=== PATIENT | female | born 1980 | race Caucasian/White ===

== ENCOUNTER 2019-04-05 18:10 | Observation (INO) | payer OTHER ==
[2019-04-05] MEDS ORDERED: ONDANSETRON 4 MG/2 ML VIAL IVP STA (18:22)
[2019-04-05] MEDS ORDERED: HYDROmorphone 1 MG/ML CARPUJECT IVP STA ×3 (18:22→20:53)
--- NOTE | 2019-04-05 18:24 | ED Physician Documentation ---
PD HPI ABD PAIN - Stated complaint Stated Complaint: CRAMPING - Chief complaint Chief Complaint: Abd Pain - History obtained from History obtained from: Patient - History of Present Illness Timing - onset: Other (G3, P1 at 6 weeks gestation with an LMP of February 17 was having some bleeding on and off for the last few days. [place] results. Today the pain is much more severe with light bleeding and now is on the left.) Review of Systems Ten Systems: 10 systems reviewed and negative Constitutional: reports: Reviewed and negative Cardiac: reports: Reviewed and negative Respiratory: reports: Reviewed and negative PD PAST MEDICAL HISTORY - Allergies Allergies/Adverse Reactions: Allergies Allergy/AdvReac Type Severity Reaction Status Date / Time aspirin Allergy Unknown Verified 04/05/19 18:12 ibuprofen Allergy Unknown Verified 04/05/19 18:12 PD ED PE NORMAL - Vitals Vital signs reviewed: Yes - General General: Alert and oriented X 3, Other (She is crying and appears uncomfortable) - HEENT HEENT: PERRL, EOMI - Neck Neck: Supple, no meningeal sign, No bony TTP - Cardiac Cardiac: RRR, No murmur - Respiratory Respiratory: No respiratory distress, Clear bilaterally - Abdomen Abdomen: Normal bowel sounds, Soft, Non tender - Female Female : Other (No obvious intrauterine on bedside ultrasound) - Back Back: No CVA TTP, No spinal TTP - Derm Derm: Normal color, Warm and dry, No rash - Neuro Neuro: Alert and oriented X 3, Normal speech Results - Vitals Vitals: Vital Signs - 24 hr 04/05/19 04/05/19 18:13 21:00 Temperature 36.4 C L Heart Rate 68 78 Respiratory 20 16 Rate Blood Pressure 142/102 H 116/80 O2 Saturation 100 100 Oxygen O2 Source Room air - Labs Labs: Laboratory Tests 04/05/19 04/05/19 04/05/19 18:30 18:30 18:30 WBC 8.3 RBC 4.43 Hgb 13.4 Hct 38.2 MCV 86.2 MCH 30.2 MCHC 35.1 RDW 12.2 Plt Count 246 MPV 9.0 Neut # (Auto) 3.0 Lymph # (Auto) 4.5 H [place] # (Auto) 0.6 Eos # (Auto) 0.1 Baso # (Auto) 0.0 Absolute Nucleated RBC 0.00 Nucleated RBC % 0.0 Sodium 136 Potassium 3.1 L Chloride 105 Carbon Dioxide 20 L Anion Gap 11.0 BUN 15 Creatinine 0.8 Estimated GFR (MDRD) 81 L Glucose 125 H Calcium 9.2 HCG, Quant Urine Color Urine Clarity Urine pH Ur Specific [place] Urine Protein Urine Glucose (UA) Urine Ketones Urine Occult Blood Urine Nitrite Urine Bilirubin Urine Urobilinogen Ur Leukocyte Esterase Urine RBC Urine WBC Ur Squamous Epith Cells Urine Bacteria Ur Microscopic Review Urine Culture Comments Blood Type B POSITIVE Blood Type Recheck Antibody Screen Crossmatch IS Only 04/05/19 04/05/19 04/05/19 18:30 18:30 19:15 WBC RBC Hgb Hct MCV MCH MCHC RDW Plt Count MPV Neut # (Auto) Lymph # (Auto) [place] # (Auto) Eos # (Auto) Baso # (Auto) Absolute Nucleated RBC Nucleated RBC % Sodium Potassium Chloride Carbon Dioxide Anion Gap BUN Creatinine Estimated GFR (MDRD) Glucose Calcium HCG, Quant 3407.00 Urine Color RED/BLOODY Urine Clarity CLOUDY Urine pH 8.5 H Ur Specific [place] 1.020 Urine Protein TRACE Urine Glucose (UA) NEGATIVE Urine Ketones NEGATIVE Urine Occult Blood LARGE H Urine Nitrite NEGATIVE Urine Bilirubin NEGATIVE Urine Urobilinogen 0.2 (NORMAL) Ur Leukocyte Esterase NEGATIVE Urine RBC TNTC H Urine WBC 0-3 Ur Squamous Epith Cells NONE SEEN Urine Bacteria Rare Ur Microscopic Review INDICATED Urine Culture Comments NOT INDICATED Blood Type Cancelled Blood Type Recheck Antibody Screen NEGATIVE Crossmatch IS Only See Detail 04/05/19 22:22 WBC RBC Hgb Hct MCV MCH MCHC RDW Plt Count MPV Neut # (Auto) Lymph # (Auto) [place] # (Auto) Eos # (Auto) Baso # (Auto) Absolute Nucleated RBC Nucleated RBC % Sodium Potassium Chloride Carbon Dioxide Anion Gap BUN Creatinine Estimated GFR (MDRD) Glucose Calcium HCG, Quant Urine Color Urine Clarity Urine pH Ur Specific [place] Urine Protein Urine Glucose (UA) Urine Ketones Urine Occult Blood Urine Nitrite Urine Bilirubin Urine Urobilinogen Ur Leukocyte Esterase Urine RBC Urine WBC Ur Squamous Epith Cells Urine Bacteria Ur Microscopic Review Urine Culture Comments Blood Type Blood Type Recheck B POSITIVE Antibody Screen Crossmatch IS Only - Rads (name of study) OB Sono Radiology: Discussed with rads (1. Left adnexal mass concerning for an ectopic , seen adjacent to the left ovary, measures 1.9 x 1.4 x 1.1 cm, contains a cystic area with echogenic rim, and the cystic area mean sac diameter measuring 0.48 cm corresponding to 5 weeks 2 days gestational age if this is a gestational sac. No embryo or yolk sac is seen. Small amount of low level echogenic complex free fluid is seen adjacent to the left adnexal mass, concerning for a small amount of hemoperitoneum. 2. Pseudogestational sac versus possible intrauterine . Cystic area seen at the fundal endometrium with a mean sac diameter of 0.41 cm corresponding to 5 weeks 1 day gestational age if this is a gestational sac. No embryo or yolk sac is seen. 3. Small probable hemoperitoneum seen in the posterior cul-de-sac.) PD MEDICAL DECISION MAKING - ED course ED course: 38-year-old woman is had some bleeding in this presents now with severe left pelvic pain requiring narcotic pain medication. Work-up is concerning for a left ectopic and case was discussed by phone with Dr. Cartwright at 9:25pm Dr. Cartwrihgt saw the patient, felt her exam was abnormally benign compared with the ultrasound reading. Plans to keep the patient in observation for serial exams. Departure - Departure Disposition: ED Place in Observation Clinical Impression: Ectopic without intrauterine Qualifiers: Location of ectopic : other location Qualified Code(s): O00.80 - Other ectopic without intrauterine Condition: Stable
[2019-04-05 18:58] LABS: BASOPHILS % (AUTO) 0.5 %; EOSINOPHILS # (AUTO) 0.1 10^3/uL (0.0-0.7); EOSINOPHILS % (AUTO) 1.1 %; HGB - HEMOGLOBIN 13.4 g/dL (12.0-16.0); LYMPHOCYTES # (AUTO) 4.5 10^3/uL (1.5-3.5); LYMPHOCYTES % (AUTO) 54.9 %; MEAN CORPUSCULAR HEMOGLOBIN 30.2 pg (27.0-31.0); MEAN CORPUSCULAR HGB CONC 35.1 g/dL (32.0-36.0); MEAN CORPUSCULAR VOLUME 86.2 fL (81.0-99.0); MONOCYTES # (AUTO) 0.6 10^3/uL (0.0-1.0); MONOCYTES % (AUTO) 7.2 %; NEUTROPHILS % (AUTO) 36.1 %; PLT - PLATELET COUNT 246 10^3/uL (130-450); RED BLOOD COUNT 4.43 10^6/uL (4.20-5.40); RED CELL DISTRIBUTION WIDTH 12.2 % (12.0-15.0); WHITE BLOOD COUNT 8.3 x10^3/uL (4.8-10.8)
[2019-04-05 19:09] LABS: CALCIUM 9.2 mg/dL (8.5-10.3); CREATININE 0.8 mg/dL (0.4-1.0)
[2019-04-05 19:27] LABS: BILIRUBIN,URINE NEGATIVE (NEGATIVE); GLUCOSE, URINE (UA) NEGATIVE (NEGATIVE); KETONES,URINE (UA) NEGATIVE (NEGATIVE); LEUKOCYTE ESTERASE, URINE NEGATIVE (NEGATIVE); NITRITE,URINE NEGATIVE (NEGATIVE); OCCULT BLOOD,URINE LARGE (NEGATIVE); PH,URINE 8.5 PH (5.0-7.5); PROTEIN,URINE TRACE mg/dL (NEGATIVE); UROBILINOGEN,URINE 0.2 (NORMAL) E.U./dL (NORMAL)
[2019-04-05 19:30] LABS: CLARITY,URINE CLOUDY (CLEAR)
[2019-04-05 19:42] LABS: BACTERIA,URINE Rare /HPF (None Seen); RBC,URINE TNTC /HPF (0-5); SQUAMOUS EPITHELIAL CELL,UR NONE SEEN (<= Few)
--- NOTE | 2019-04-05 21:25 | Ultrasound Report ---
Reason: L pelvic pain 6w Procedure Date: 04/05/2019 Accession Number: [id number] / [id number] Procedure: US - OB First Trimester CPT Code: FULL RESULT: EXAM: FIRST TRIMESTER OBSTETRIC ULTRASOUND (Less than 11 weeks) EXAM DATE: 04/05/2019 09:01 PM. CLINICAL HISTORY: Left pelvic pain, 6 weeks . LMP: 02/17/2019, EGA 6 weeks 5 days, LINDA 11/24/2019. COMPARISONS: None. TECHNIQUE: Transabdominal and transvaginal ultrasound examination with static image documentation. ASSESSMENT: Left adnexal mass concerning for an ectopic , seen adjacent to the left ovary, measures 1.9 x 1.4 x 1.1 cm, contains a cystic area with echogenic rim, and the cystic area mean sac diameter measuring 0.48 cm corresponding to 5 weeks 2 days gestational age if this is a gestational sac. No embryo or yolk sac is seen. Small amount of low level echogenic complex free fluid is seen adjacent to the left adnexal mass, concerning for a small amount of hemoperitoneum. The left ovary measures 2.5 x 2.9 x 2 cm with a volume of 7.7 cc. Blood flow is seen in the left ovary. Corpus luteum seen in the left ovary. Blood flow is seen in the left ovary. The right ovary measures 2.5 x 2.4 x 2.3 cm with a volume of 7.1 cc. The right ovary appears within normal limits. The uterus is retroverted. Prominent endometrium measuring 1.7 cm. Cystic area seen at the fundal endometrium with a mean sac diameter of 0.41 cm corresponding to 5 weeks 1 day gestational age if this is a gestational sac. No evidence for perigestational bleed. To early to evaluate amniotic fluid. No embryo or yolk sac is seen. Small complex free fluid seen in the posterior cul-de-sac, contains low level internal echoes. IMPRESSION: 1. Left adnexal mass concerning for an ectopic , seen adjacent to the left ovary, measures 1.9 x 1.4 x 1.1 cm, contains a cystic area with echogenic rim, and the cystic area mean sac diameter measuring 0.48 cm corresponding to 5 weeks 2 days gestational age if this is a gestational sac. No embryo or yolk sac is seen. Small amount of low level echogenic complex free fluid is seen adjacent to the left adnexal mass, concerning for a small amount of hemoperitoneum. 2. Pseudogestational sac versus possible intrauterine . Cystic area seen at the fundal endometrium with a mean sac diameter of 0.41 cm corresponding to 5 weeks 1 day gestational age if this is a gestational sac. No embryo or yolk sac is seen. 3. Small probable hemoperitoneum seen in the posterior cul-de-sac. RADIA The call report notification system was initiated by Dr. Brittney Lerner at 09:19 PM on 04/05/2019. The above call report findings were discussed with Tyler Sarmiento by Dr. Brittney Lerner at 09:21 PM on 04/05/2019.
[2019-04-05] MEDS ORDERED: ACETAMINOPHEN 325 MG TABLET PO PRN (22:45)
[2019-04-05] MEDS ORDERED: oxyCODONE 5 MG TABLET PO PRN (22:45)
[2019-04-05] MEDS ORDERED: ONDANSETRON 4 MG/2 ML VIAL IVP PRN (22:45)
[2019-04-05] MEDS ORDERED: HYDROmorphone 0.5 MG/0.5 ML SYRINGE IVP PRN (22:45)
[2019-04-05] MEDS ORDERED: SODIUM CHLORIDE FLUSH 0.9% 10 ML SYRINGE IVP PRN (22:45)
[2019-04-05] MEDS ORDERED: ACETAMINOPHEN 160 MG/5 ML SUSP UDC PO PRN (22:45)
[2019-04-05] MEDS ORDERED: ONDANSETRON ODT 4 MG TABLET TL PRN (22:45)
[2019-04-05] MEDS ORDERED: oxyCODONE 10 MG/0.5 ML SYRINGE PO PRN (22:45)
--- NOTE | 2019-04-05 22:52 | HISTORY & PHYSICAL EXAMINATION ---
Chief Complaint - Chief Complaint Chief Complaint: pelvic pain/bleeding c/f ectopic History of Present Illness - Admitted From Admitted From:: ER - History Obtained From History obtained from: patient - History of Present Illness HPI Comment/Other: ID: Patient is a 38-year-old G3, P1 with early concerning for possible ectopic versus early SAB HPI: Ms. Lopez was followed by the [facility]. LMP is 02/17/2019. Estimated gestational age of 6 weeks 5 days with an LINDA of 11/24/2019. Yesterday patient started experiencing some abdominal pain and light bleeding. She presumed this was an SAB and presented to the [facility]. Per patient report, physician there performed a bedside pelvic ultrasound and no intrauter ine or adnexal masses were noted. An hCG was drawn. Plan was to repeat hCG tomorrow. At approximately 530 this evening, pain became significant. She presented to the ED rating pain 10 out of 10. She received 4 mg of Dilaudid IV. Her pain was relieved. She underwent a pelvic ultrasound that showed a cystic mass in the left adnexa with a mean sac diameter of 0.48 cm and measuring 1.9 cm in gr eatest dimension. In the uterus there was another sac at the fundus also about 5 weeks 1 day estimated gestational age based on a mean sac diameter of 0.41 cm. No embryo or yolk sac was seen in either cystic mass. There is a small amount of hemoperitoneum in the cul-de-sac.It was read as likely ectopic in the left adnexa or possible heterotopic . At the time of this examiner's assessment, the pain was well managed. Patient was moving easily and without hesitation. She was able to speak easily and rated her pain as nearly nonexistent. She noted been more than an hour since she received any pain medication. She notes this is a significant change from her presentation. Minimal vaginal bleeding. Of note, she is an allergy to ibuprofen and aspirin. She reports that her eyes swell. She is Rh+ and starting hematocrit is 38%. PMH: unremarkable PSH: OBHX: with SABx1, No STIs/ no abnl pap smears, Reg menses outside FAM HX: Mother with skin cancer, Father: unknown SOC HX: Lives in [place] with () and daughter. SAHM. No TAHIRA. 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 Exam - Vital Signs Vital Signs: Vital Signs x48h Temp Pulse Resp BP Pulse Ox 04/05/19 21:00 78 16 116/80 100 04/05/19 18:13 97.5 F L 68 20 142/102 H 100 - Physical Exam General Appearance: positive: No acute distress Neck: positive: Nml inspection Respiratory: positive: No respiratory distress Cardiovascular: positive: Regular rate & rhythm Abdomen: positive: Non-tender, Other (Soft, nontender, nondistended. No tenderness to palpation on rigorous exam.) Extremities: positive: Non-tender, Nml appearance Neurologic/Psychiatric: positive: Oriented x3 Comments/Other: Pelvic: Normal-appearing external female genitalia, normal [place]th[place]'s/[place]'s/urethral meatus. No evidence of external vaginal bleeding. Bimanual exam reveals no cervical motion tenderness on rigorous exam. No adnexal masses or tenderness. Unable to replicate tenderness on examination of adnexa. Small amount of blood on exam glove. Conclusion/Plan - Problem List (1) Ectopic without intrauterine Conclusion/Plan: Patient is a 38-year-old G3, P1 at 6 weeks 5 days estimated gestational age based on LMP of 02/17/2019 who presents with pelvic pain concerning for possible ectopic. Questionable ectopic : -hCG 3407. Above ultrasound threshold. Intrauterine or ectopic should be visible at this level. -Pelvic ultrasound shows a cystic mass in the left adnexa adnexa with a mean sac diameter of 0.48 cm. In addition a small cystic mass is seen in the uterine fundus measuring 0.41 cm. Estimated gestational age based on gestational sac diameter is 5 weeks 2 days for the adnexal mass and 5 weeks 1 day for the int rauterine mass -No pole or yolk sac are visualized in either cystic mass -Small amount of hemoperitoneum in the cul-de-sac -Completely benign abdominal and pelvic exam. Patient herself notes this is a marked change from time it of admission. -Exam conducted more than an hour after administration of pain medicine. Patient interaction physical conduct not suggestive of heavy influence of pain medicine. Reviewed conundrum of clinical scenario with patient. -Presence of heterotopic ectopic is possible, but extremely rare outside of IVF pregnancies. -Use of methotrexate would manage the ectopic , but would also terminate a viable intrauterine -Surgical intervention would most likely result in a left salpingectomy; would preserve an intrauterine . While initial presentation was highly concerning and would possibly warrant surgical intervention, current clinical presentation is very benign. Patient also notes that she feels remarkably better since time of admission, in a manner that is not attributable to medication alone. Reviewed that it is possible for ectopic to self abort, releasing into the cul-de-sac. While this not a surgical emergency, on occasion it is important to administer methotrexate in this scenario Discussed options with patient. Will admit for observation overnight and allow for /ectopic to declare itself under close observation. If she remains stable overnight, she will answer the window for repeat hCG as per her [employer] physician. Will remain on clear liquid diet on observation overnight Qualifiers: Location of ectopic : other location - Lab Results Fish Bones: 04/05/19 18:30 04/05/19 18:30 - Diagnostic Imaging Results Diagnostic Imaging Results: positive: Final report reviewed Core Measures - Anticipated LOS I expect patient to be DC'd or transferred within 96 hours.: Yes - DVT/VTE - Prophylaxis VTE/DVT Device ordered at admit?: No Not Ordered - Low Risk: Very low risk
[2019-04-06] MEDS ORDERED: oxyCODONE 5 MG TABLET ONE (00:37)
[2019-04-06] MEDS: SODIUM CHLORIDE FLUSH 0.9% 10 ML SYRINGE IVP SCH ×2 (01:02→08:12)
[2019-04-06 06:53] LABS: HGB - HEMOGLOBIN 12.5 g/dL (12.0-16.0); MEAN CORPUSCULAR HGB CONC 33.9 g/dL (32.0-36.0); MEAN CORPUSCULAR VOLUME 88.5 fL (81.0-99.0); MEAN PLATELET VOLUME 8.5 fL (7.9-10.8); RED BLOOD COUNT 4.17 10^6/uL (4.20-5.40); RED CELL DISTRIBUTION WIDTH 12.3 % (12.0-15.0); WHITE BLOOD COUNT 7.9 x10^3/uL (4.8-10.8)
[2019-04-06] MEDS ORDERED: LACTATED RINGERS 1,000 ML IV SCH (07:00)
[2019-04-06 08:21] VITALS: BP 103/59
[2019-04-06] MEDS ORDERED: POLYETHYLENE GLYCOL 3350 17 GM PACKET PO SCH (09:00)
--- NOTE | 2019-04-06 10:23 | PROVIDER PROGRESS NOTE ---
Subjective - Prog Note Date Prog Note Date: 04/06/19 Prog Note Time: 10:20 - Subjective Pt reports feeling: Improved ( Pain has resolved overnight. Needed 1 dose of pain medication for muscle soreness. Vaginal bleeding has been minimal. No nausea or vomiting.) Objective - Vital Signs/Intake & Output Reviewed Vital Signs: Yes Vital Signs: Vital Signs x48h Temp Pulse Resp BP Pulse Ox 04/06/19 08:03 97.3 F L 62 18 103/59 L 100 04/06/19 05:50 98.2 F 69 16 96/52 L 97 Intake & Output: Intake & Output 04/03/19 04/04/19 04/05/19 04/06/19 23:59 23:59 23:59 23:59 Intake Total 460 Balance 460 - Objective General Appearance: positive: No acute distress Respiratory: positive: No respiratory distress Cardiovascular: positive: Regular rate & rhythm Abdomen: positive: Non-tender, Other (Soft nontender nondistended. No guarding) Skin: positive: Color nml Extremities: positive: Non-tender Neurologic/Psychiatric: positive: Oriented x3 - Lab Results Fish Bones: 04/06/19 06:45 04/05/19 18:30 Other Labs: Lab Results x24hrs 04/06/19 04/06/19 04/05/19 Range/Units 06:45 06:45 22:22 WBC 7.9 (4.8-10.8) x10^3/uL RBC 4.17 L (4.20-5.40) 10^6/uL Hgb 12.5 (12.0-16.0) g/dL Hct 36.9 L (37.0-47.0) % MCV 88.5 (81.0-99.0) fL MCH 30.0 (27.0-31.0) pg MCHC 33.9 (32.0-36.0) g/dL RDW 12.3 (12.0-15.0) % Plt Count 207 (130-450) 10^3/uL MPV 8.5 (7.9-10.8) fL Neut # (Auto) (1.5-6.6) 10^3/uL Lymph # (Auto) (1.5-3.5) 10^3/uL [place] # (Auto) (0.0-1.0) 10^3/uL Eos # (Auto) (0.0-0.7) 10^3/uL Baso # (Auto) (0.0-0.1) 10^3/uL Absolute Nucleated RBC x10^3/uL Nucleated RBC % /100WBC Sodium (135-145) mmol/L Potassium (3.5-5.0) mmol/L Chloride (101-111) mmol/L Carbon Dioxide (21-32) mmol/L Anion Gap (6-13) BUN (6-20) mg/dL Creatinine (0.4-1.0) mg/dL Estimated GFR (MDRD) (>89) Glucose (70-100) mg/dL Calcium (8.5-10.3) mg/dL HCG, Quant 2482.00 mIU/mL Urine Color Urine Clarity (CLEAR) Urine pH (5.0-7.5) PH Ur Specific [place] (1.002-1.030) Urine Protein (NEGATIVE) mg/dL Urine Glucose (UA) (NEGATIVE) mg/dL Urine Ketones (NEGATIVE) mg/dL Urine Occult Blood (NEGATIVE) Urine Nitrite (NEGATIVE) Urine Bilirubin (NEGATIVE) Urine Urobilinogen (NORMAL) E.U./dL Ur Leukocyte Esterase (NEGATIVE) Urine RBC (0-5) /HPF Urine WBC (0-5) /HPF Ur Squamous Epith Cells (<= Few) Urine Bacteria (None Seen) /HPF Ur Microscopic Review Urine Culture Comments Blood Type Blood Type Recheck B POSITIVE Antibody Screen Crossmatch IS Only 04/05/19 04/05/19 04/05/19 Range/Units 19:15 18:30 18:30 WBC (4.8-10.8) x10^3/uL RBC (4.20-5.40) 10^6/uL Hgb (12.0-16.0) g/dL Hct (37.0-47.0) % MCV (81.0-99.0) fL MCH (27.0-31.0) pg MCHC (32.0-36.0) g/dL RDW (12.0-15.0) % Plt Count (130-450) 10^3/uL MPV (7.9-10.8) fL Neut # (Auto) (1.5-6.6) 10^3/uL Lymph # (Auto) (1.5-3.5) 10^3/uL [place] # (Auto) (0.0-1.0) 10^3/uL Eos # (Auto) (0.0-0.7) 10^3/uL Baso # (Auto) (0.0-0.1) 10^3/uL Absolute Nucleated RBC x10^3/uL Nucleated RBC % /100WBC Sodium (135-145) mmol/L Potassium (3.5-5.0) mmol/L Chloride (101-111) mmol/L Carbon Dioxide (21-32) mmol/L Anion Gap (6-13) BUN (6-20) mg/dL Creatinine (0.4-1.0) mg/dL Estimated GFR (MDRD) (>89) Glucose (70-100) mg/dL Calcium (8.5-10.3) mg/dL HCG, Quant 3407.00 mIU/mL Urine Color RED/BLOODY Urine Clarity CLOUDY (CLEAR) Urine pH 8.5 H (5.0-7.5) PH Ur Specific [place] 1.020 (1.002-1.030) Urine Protein TRACE (NEGATIVE) mg/dL Urine Glucose (UA) NEGATIVE (NEGATIVE) mg/dL Urine Ketones NEGATIVE (NEGATIVE) mg/dL Urine Occult Blood LARGE H (NEGATIVE) Urine Nitrite NEGATIVE (NEGATIVE) Urine Bilirubin NEGATIVE (NEGATIVE) Urine Urobilinogen 0.2 (NORMAL) (NORMAL) E.U./dL Ur Leukocyte Esterase NEGATIVE (NEGATIVE) Urine RBC TNTC H (0-5) /HPF Urine WBC 0-3 (0-5) /HPF Ur Squamous Epith Cells NONE SEEN (<= Few) Urine Bacteria Rare (None Seen) /HPF Ur Microscopic Review INDICATED Urine Culture Comments NOT INDICATED Blood Type Cancelled Blood Type Recheck Antibody Screen NEGATIVE Crossmatch IS Only See Detail 04/05/19 04/05/19 04/05/19 Range/Units 18:30 18:30 18:30 WBC 8.3 (4.8-10.8) x10^3/uL RBC 4.43 (4.20-5.40) 10^6/uL Hgb 13.4 (12.0-16.0) g/dL Hct 38.2 (37.0-47.0) % MCV 86.2 (81.0-99.0) fL MCH 30.2 (27.0-31.0) pg MCHC 35.1 (32.0-36.0) g/dL RDW 12.2 (12.0-15.0) % Plt Count 246 (130-450) 10^3/uL MPV 9.0 (7.9-10.8) fL Neut # (Auto) 3.0 (1.5-6.6) 10^3/uL Lymph # (Auto) 4.5 H (1.5-3.5) 10^3/uL [place] # (Auto) 0.6 (0.0-1.0) 10^3/uL Eos # (Auto) 0.1 (0.0-0.7) 10^3/uL Baso # (Auto) 0.0 (0.0-0.1) 10^3/uL Absolute Nucleated RBC 0.00 x10^3/uL Nucleated RBC % 0.0 /100WBC Sodium 136 (135-145) mmol/L Potassium 3.1 L (3.5-5.0) mmol/L Chloride 105 (101-111) mmol/L Carbon Dioxide 20 L (21-32) mmol/L Anion Gap 11.0 (6-13) BUN 15 (6-20) mg/dL Creatinine 0.8 (0.4-1.0) mg/dL Estimated GFR (MDRD) 81 L (>89) Glucose 125 H (70-100) mg/dL Calcium 9.2 (8.5-10.3) mg/dL HCG, Quant mIU/mL Urine Color Urine Clarity (CLEAR) Urine pH (5.0-7.5) PH Ur Specific [place] (1.002-1.030) Urine Protein (NEGATIVE) mg/dL Urine Glucose (UA) (NEGATIVE) mg/dL Urine Ketones (NEGATIVE) mg/dL Urine Occult Blood (NEGATIVE) Urine Nitrite (NEGATIVE) Urine Bilirubin (NEGATIVE) Urine Urobilinogen (NORMAL) E.U./dL Ur Leukocyte Esterase (NEGATIVE) Urine RBC (0-5) /HPF Urine WBC (0-5) /HPF Ur Squamous Epith Cells (<= Few) Urine Bacteria (None Seen) /HPF Ur Microscopic Review Urine Culture Comments Blood Type B POSITIVE Blood Type Recheck Antibody Screen Crossmatch IS Only - Other Results/Comments Other Results/Comments: hCG dropped from 0830-9516 overnight Blood type B+ Assessment/Plan - Problem List (1) Ectopic without intrauterine Impression: Resolution of likely self aborted ectopic . Drop in hCG indicates failure /resolution of ectopic . Hematocrit stable, blood type Rh+. Recommend following hCG levels down to normal. Would recommend delaying attempts at conception and until hCG is normalized and at least one menstrual cycle has returned. Discharging to home with follow-up with primary OB at [place] Potassium levels low; patient declined repletion in house. Has supplementation in home environment. Discharge to home with routine discharge instructions. Qualifiers: Location of ectopic : other location Qualified Code(s): O00.80 - Other ectopic without intrauterine
== END 2019-04-06 11:21 | disposition home or self-care (01) ==
LOC: ED 18:10 → MS2 23:15
PROVIDERS: ADMIT Obstetrics & Gynecology; ATTEND Obstetrics & Gynecology
DX: O00.80 Other ectopic pregnancy without intrauterine pregnancy (principal); R93.89 Abnormal findings on diagnostic imaging of other specified body structures
CPT/HCPCS: 36415; 76801; 76817; 80048; 81001; 84702; 85025; 85027; 86850; 86900; 86901; 86920; 96374; 96375; 96376; 99284; 99285; A9270; G0378; J1170; J7120; 81003; 87086

== ENCOUNTER 2019-04-09 15:56 | Day surgery (SDC) | payer OTHER ==
--- NOTE | 2019-04-09 16:30 | ED Physician Documentation ---
PD HPI ABD PAIN - Stated complaint Stated Complaint: AB PX - Chief complaint Chief Complaint: Abd Pain - History obtained from History obtained from: Patient - History of Present Illness Timing - onset: How many days ago (5) Timing - duration: Days (5) Timing - details: Abrupt onset Quality: Cramping, Stabbing Location: LLQ Associated symptoms: No: Fever, Nausea, Vomiting, Diarrhea Recently seen: Clinic, Emergency Dept, Admitted - Additional information Additional information: This is a 38-year-old woman who was seen 5 days ago cramping stabbing left lower quadrant pain and was . Ultrasound at that time could not confirm an ectopic she was admitted to OB for monitoring and her quant had dropped by 1000 the following day so she was discharged pain-free. Over the weekend she felt very lightheaded and was not supposed to see the OB until tomorrow however she called and managed to get an [place] repeat quantitative hCG which she does not know the results of. When she did the ultrasound she says they saw a definitive ectopic and sent her back here to the emergency department. She still having some cramping and vaginal bleeding passing small clots but no tissue. She is been dizzy but has not passed out. She is 3 para 1 spontaneous 1. Review of Systems Constitutional: denies: Fever GI: reports: Abdominal Pain. 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 - Allergies Allergies/Adverse Reactions: Allergies Allergy/AdvReac Type Severity Reaction Status Date / Time aspirin Allergy Unknown Verified 04/09/19 16:10 ibuprofen Allergy Unknown Verified 04/09/19 16:10 - Social History Does the pt smoke?: No Smoking Status: Former smoker Does the pt drink ETOH?: No Does the pt have substance abuse?: No - Immunizations Immunizations are current?: Yes - POLST Patient has POLST: No PD ED PE NORMAL - Vitals Vital signs reviewed: Yes - General General: Alert and oriented X 3, No acute distress, Well developed/nourished - HEENT HEENT: Atraumatic, PERRL, Moist mucous membranes - Cardiac Cardiac: RRR, No murmur - Respiratory Respiratory: No respiratory distress, Clear bilaterally - Abdomen Abdomen: Normal bowel sounds, Other (Tenderness in the left lower quadrant with some guarding) - Derm Derm: Normal color, Warm and dry, No rash - Neuro Neuro: Alert and oriented X 3, Normal speech, Other (No gross neurological deficits) - Psych Psych: Normal mood, Normal affect Results - Vitals Vitals: Vital Signs - 24 hr 04/09/19 04/09/19 04/09/19 16:10 19:17 21:08 Temperature 36.8 C 36.9 C 36.9 C Heart Rate 93 71 72 Respiratory 16 15 14 Rate Blood Pressure 123/88 H 114/90 H 93/66 O2 Saturation 99 99 99 04/09/19 04/09/19 23:13 23:15 Temperature 36.9 C 37.1 C Heart Rate 85 78 Respiratory 15 15 Rate Blood Pressure 116/74 115/69 O2 Saturation 100 100 Oxygen O2 Source Room air - Labs Labs: Laboratory Tests 04/09/19 04/09/19 17:00 17:00 WBC 10.6 RBC 4.87 Hgb 14.4 Hct 41.5 MCV 85.2 MCH 29.6 MCHC 34.7 RDW 11.9 L Plt Count 254 MPV 9.0 Neut # (Auto) 6.3 Lymph # (Auto) 3.6 H Sampson # (Auto) 0.6 Eos # (Auto) 0.1 Baso # (Auto) 0.0 Absolute Nucleated RBC 0.00 Nucleated RBC % 0.0 HCG, Quant 4955.00 PD MEDICAL DECISION MAKING - ED course Complexity details: reviewed old records, reviewed results, d/w patient, d/w family, d/w alliance consultant ED course: The patient's quant has risen. She has a stable hemoglobin. Ultrasound read per the radiologist to actually called me stating that the cystic structure in the left adnexa had grown and was "extremely" suspicious for AN ectopic. Intrauterine pseudo-gestational sac is gone. Dr. Johnson was actually here in the emergency department when I received a call from the radiologist and he is evaluating the patient for surgical intervention. Departure - Departure Disposition: ED Transfer to [facility] Clinical Impression: Ectopic Qualifiers: Location of ectopic : other location Intrauterine status: without intrauterine Qualified Code(s): O00.80 - Other ectopic without intrauterine Condition: Good Discharge Date/Time: 04/09/19 21:42
[2019-04-09] MEDS ORDERED: SODIUM CHLORIDE 0.9% 1,000 ML IV ONE ×2 (16:46→19:42)
[2019-04-09 17:11] LABS: BASOPHILS % (AUTO) 0.4 %; EOSINOPHILS # (AUTO) 0.1 10^3/uL (0.0-0.7); EOSINOPHILS % (AUTO) 0.6 %; HGB - HEMOGLOBIN 14.4 g/dL (12.0-16.0); LYMPHOCYTES # (AUTO) 3.6 10^3/uL (1.5-3.5); LYMPHOCYTES % (AUTO) 33.6 %; MEAN CORPUSCULAR HEMOGLOBIN 29.6 pg (27.0-31.0); MEAN CORPUSCULAR HGB CONC 34.7 g/dL (32.0-36.0); MEAN CORPUSCULAR VOLUME 85.2 fL (81.0-99.0); MONOCYTES # (AUTO) 0.6 10^3/uL (0.0-1.0); MONOCYTES % (AUTO) 5.9 %; NEUTROPHILS # (AUTO) 6.3 10^3/uL (1.5-6.6); NEUTROPHILS % (AUTO) 59.1 %; PLT - PLATELET COUNT 254 10^3/uL (130-450); RED BLOOD COUNT 4.87 10^6/uL (4.20-5.40); RED CELL DISTRIBUTION WIDTH 11.9 % (12.0-15.0); WHITE BLOOD COUNT 10.6 x10^3/uL (4.8-10.8)
--- NOTE | 2019-04-09 19:12 | Ultrasound Report ---
Reason: f/u poss ectopic Procedure Date: 04/09/2019 Accession Number: [id number] / [id number] Procedure: US - OB First Trimester CPT Code: FULL RESULT: EXAM: FIRST TRIMESTER OBSTETRIC ULTRASOUND (Less than 11 weeks) EXAM DATE: 04/09/2019 05:42 PM. CLINICAL HISTORY: F/u poss ectopic. LMP: 02/17/2019. COMPARISONS: OB FIRST TRIMESTER 04/05/2019 8:06 PM. TECHNIQUE: Transabdominal and transvaginal ultrasound examination with static image documentation. ASSESSMENT: No intrauterine gestational sac identified. MATERNAL STRUCTURES: Uterus: Retroverted. Unremarkable. Cervix: Small amount of fluid.. Right Ovary/Adnexa: The ovary measures 3.3 x 2.8 x 2.8 cm, volume 13.2 cc. Unremarkable. Left Ovary/Adnexa: The ovary measures 3.4 x 2.2 x 2.0 cm, volume 7.8 cc. 1.9 cm corpus luteal cyst. Cystic structure with echogenic rim separate from the left ovary is present measuring 2.8 x 1.6 x 1.7 cm, mildly enlarged as the prior when it measured 1.9 x 1.4 x 1.1 cm. Free Fluid: Small amount. Other: None. IMPRESSION: Findings highly suspicious for ectopic . Previously described intrauterine fluid sac is no longer present, likely reflected a pseudo-gestational sac. RADIA The critical result notification system was initiated by Dr. Jere Lozano at 07:07 PM on 04/09/2019. The above critical result findings were discussed with Dr. Jane by Dr. Jere Lozano at 07:10 PM on 04/09/2019.
[2019-04-09] MEDS ORDERED: HYDROcod/ACET 5/325 Prepack 4 PO STA (19:43)
--- NOTE | 2019-04-09 20:18 | PREOP HISTORY & PHYSICAL ---
DATE OF SERVICE: 04/09/2019 Physician: Antonino Johnson DO CHIEF COMPLAINT: Left ectopic . HISTORY OF CHIEF COMPLAINT: This is a well-developed, well-nourished, 38-year-old white female who is 3, para 1-0-1-1. She has an LMP of 02/17/2019. She had been seen in the emergency room on 04/05/2019, for a possible ectopic . At that time, an ultrasound had revealed a 1.9 cm cystic structure on the left; however, they could not rule out there might be an intrauterine . Her quantitative that night was 3407. She was admitted overnight, and her quantitative was repeated in the morning and found to have fallen to 2482. 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 Throughout the weekend, she began feeling somewhat worse. She began having some increasing cramping and dizziness. She went to the [facility] today and was told that she could only have medical treatment with methotrexate. She did not wish this and only wished to be treated surgically. This evening, however, she began to feel much worse. She is having cramping. She is having vaginal bleeding, which is increasing. She came back to the emergency room. Her quantitative hCG tonight is 4955. She had an ultrasound done, which reveals a 2.8 x 1.6 x 1.7 cystic structure in the left adnexa. There is definitely nothing in the uterus itself. They feel this is highly suspicious for an ectopic . Patient does not wish any medical treatment. She only wishes surgery. We therefore discussed the risks, benefits, alternatives and complications of a laparoscopic salpingectomy, possible salpingotomy, possible oophorectomy, possible laparotomy. Questions encouraged and answered. She understood and consents were signed. Patient denies any history of pelvic inflammatory disease, gonorrhea, syphilis, chlamydia, herpes, recurrent vaginal infections, trichomonas or abnormal Pap smears. She has had 1 full term delivery by . She also had 1 complete spontaneous AB 2 months ago She does do her monthly self breast examinations and denies any or family history of breast disease. ALLERGIES: ASPIRIN and IBUPROFEN, which causes the tissue around her eyes to swell. PRESENT MEDICATIONS: None. PAST SURGICAL HISTORY: Remarkable for section. PAST MEDICAL HISTORY: Unremarkable. SOCIAL HISTORY: Patient is . She denies any use of tobacco products, street drugs or alcohol. FAMILY HISTORY: The mother had skin cancer. REVIEW OF SYSTEMS: All remaining systems are negative. PHYSICAL EXAMINATION VITAL SIGNS: Revealed blood pressure is 114/90. Temperature is 36.9 centigrade, pulse 71, respirations 15. She has 99% saturation on room air. GENERAL: This is a well-developed, well-nourished, 38-year-old white female in no acute distress. CARDIOVASCULAR: Heart has a regular rate and rhythm without murmur. LUNGS: Clear to auscultation bilaterally without wheezes, rales or rhonchi. ABDOMEN: Soft, pliable. No true rigidity, rebound or guarding is appreciated, but patient is quite tender on the left. Pelvic was deferred, since she did have a pelvic ultrasound revealing a left ectopic . EXTREMITIES: Warm and dry without any signs of edema. NEUROLOGIC: DTRs are +2/4, with regards to upper and lower extremities. IMPRESSION: Left ectopic . PLAN: Patient will be taken to outpatient surgery for the above said procedure. TD: 04/09/2019 20:00 TOBY
--- NOTE | 2019-04-09 20:52 | ANESTHESIA ---
Pre-Anesthesia VS, & Labs - Diagnosis left ectopic - Procedure diagnostic laparscopy, left salpingectomy Vital Signs: Temp Pulse Resp BP Pulse Ox 36.9 C 71 15 114/90 H 99 04/09/19 19:17 04/09/19 19:17 04/09/19 19:17 04/09/19 19:17 04/09/19 19:17 Height 5 ft 7 in Weight (kg) 73.936 kg Body Mass Index 25.5 - NPO Last Fluid Intake: 1500 Last Food Intake: 1000 - Is Patient ?: Not Applicable - Lab Results Current Lab Results: Laboratory Tests 04/09/19 17:00: HCG, Quant 4955.00 04/09/19 17:00: WBC 10.6, RBC 4.87, Hgb 14.4, Hct 41.5, MCV 85.2, MCH 29.6, MCHC 34.7, RDW 11.9 L, Plt Count 254, MPV 9.0, Neut # (Auto) 6.3, Lymph # (Auto) 3.6 H, Adams # (Auto) 0.6, Eos # (Auto) 0.1, Baso # (Auto) 0.0, Absolute Nucleated RBC 0.00, Nucleated RBC % 0.0 Fish Bones: 04/09/19 17:00 Home Medications and Allergies Active Medications Sodium Chloride (Normal Saline 0.9%) 1,000 mls @ 125 mls/hr IV .Q8H ONE Stop: 04/10/19 03:41 Last Admin: 04/09/19 19:49 Dose: 125 mls/hr Allergies/Adverse Reactions: Allergies Allergy/AdvReac Type Severity Reaction Status Date / Time aspirin Allergy Unknown Verified 04/09/19 16:10 ibuprofen Allergy Unknown Verified 04/09/19 16:10 Anes History & Medical History - Anesthetic History Family history of Anesthesia Complications: Denies Family history of Malignant Hyperthermia: Denies - Medical History Cardiovascular: reports: None Pulmonary: reports: None Gastrointestinal: reports: None Urinary: reports: None Neuro: reports: None Musculoskeletal: reports: None Endocrine/Autoimmune: reports: None Blood Disorders: reports: None Skin: reports: None Smoking Status: Former smoker (quit 3 years ago) - Surgical History Gynecologic: section Exam General: Alert, Oriented x3, Cooperative, No acute distress Dental: Other (chipped teeth) Mouth Openin Fingerbreadth Neck Mobility: Normal Mallampati classification: II Thyromental Distance: greater than 6 cm Respiratory: Lungs clear, Normal breath sounds, No respiratory distress, No accessory muscle use Cardiovascular: Regular rate, Normal S1, Normal S2, No murmurs Mental/Cognitive Status: Alert/Oriented X3, Normal for patient Plan Anesthesia Type: General Consent for Procedure(s) Verified and Reviewed: Yes Code Status: Attempt Resuscitation ASA classification: 2-Mild systemic disease Is this case an emergency?: Yes
[2019-04-09] MEDS ORDERED: GLYCOPYRROLATE 1 MG/5 ML VIAL IVP ONE (21:40)
[2019-04-09] MEDS ORDERED: PROPOFOL 200 MG/20 ML VIAL IVP ONE (21:40)
[2019-04-09] MEDS ORDERED: NEOSTIGMINE 1 MG/1 ML 10 ML MDV IVP ONE (21:40)
[2019-04-09] MEDS ORDERED: ROCURONIUM 50 MG/5 ML VIAL IVP ONE (21:40)
[2019-04-09] MEDS ORDERED: MIDAZOLAM 2 MG/2 ML VIAL IVP ONE (21:40)
[2019-04-09] MEDS ORDERED: DEXAMETHASONE 4 MG/ML VIAL IVP ONE (21:40)
[2019-04-09] MEDS ORDERED: fentaNYL 100 MCG/2 ML VIAL IVP ONE (21:40)
[2019-04-09] MEDS ORDERED: ONDANSETRON 4 MG/2 ML VIAL IVP ONE (21:40)
[2019-04-09] MEDS ORDERED: BUPIVACAINE 0.5%-EPI 1:200000 PF 30 ML VIAL ONE (21:41)
[2019-04-09] MEDS ORDERED: BUPIVACAINE 0.5%-EPI 1:200000 PF 30 ML VIAL SUBQ ONE (22:17)
[2019-04-09] MEDS ORDERED: LACTATED RINGERS 1,000 ML IV ONE ×2 (22:18→22:34)
[2019-04-09] MEDS ORDERED: HYDROmorphone 0.5 MG/0.5 ML SYRINGE IVP PRN (23:06)
[2019-04-09] MEDS ORDERED: ONDANSETRON 4 MG/2 ML VIAL IVP PRN (23:06)
[2019-04-09] MEDS: fentaNYL 100 MCG/2 ML VIAL ONE ×2 (23:36→23:41)
[2019-04-10] MEDS: HYDROcod/ACETAM 5/325 MG TABLET PO PRN ×3 (00:59→05:56)
--- NOTE | 2019-04-10 01:48 | OPERATIVE REPORT ---
DATE OF SERVICE: 04/09/2019 Physician: Antonino Johnson DO PREOPERATIVE DIAGNOSIS: Left ectopic . POSTOPERATIVE DIAGNOSIS: Ruptured left ectopic . PROCEDURE PERFORMED: Laparoscopic left salpingectomy. SURGEON: Antonino Johnson DO. ELECTRONIC DEVELOPMENT TECHNICIAN: None. ANESTHESIA: General. ESTIMATED BLOOD LOSS: 25 mL WOUND CLASSIFICATION: 1. COUNTS: Sponge count and needle count were correct. INDICATIONS: For the clinical history, please see H and P. SURGICAL FINDINGS: Liver margins, gallbladder, right fallopian tube, right ovary and left ovary were unremarkable. The left ovary did have a small corpus luteum cyst. The left fallopian tube was rupt ured and the ectopic was easily noted in the ampulla. She had a small amount of blood that had begun to spread across the intra-abdominal contents. The anterior and posterior cul-de-sac did have some blood in them. The posterior cul-de-sac, however, was otherwise unremarkable as was the anterior cul -de-sac and the uterus itself. PROCEDURE IN DETAIL: The patient was taken to the operative suite, placed on the surgical table in s upine position. Under general anesthetic, she was placed in Iraj stirrups, prepped and draped in th e usual fashion. Timeout then took place. Once the timeout was completed, a weighted speculum was p laced in the vaginal vault and the cervix visualized. A single-tooth tenaculum was placed onto the a nterior lip of the cervix. The uterus was then sounded to a depth of 9.5 cm. The HUMI was then plac ed into the uterus and the balloon insufflated. The single-tooth tenaculum was removed from the ante rior lip of the cervix. No signs of bleeding noted. Hemostasis followed. Surgeon's gloves were marc nged and attention was now placed to the abdomen. Prior to making any abdominal incisions all areas were anesthetized with 0.5% Marcaine with epinephri ne. A 5 mm incision was then made in the infraumbilical fold. The abdominal wall was elevated in 3- point fashion. The Veress needle extended through the wound into the abdominal cavity. The abdomina l cavity was then insufflated with approximately 3.5 liters of CO2. The Veress needle was withdrawn and the 5 mm trocar and obturator were advanced under direct laparoscopic visualization using an Opti port into the abdomen. All layers of subcuticular tissue and preperitoneal tissue were noted. The t rocar was removed and the 0-degree laparoscope advanced into the abdomen. A second port was then abebe pavel in the midline in the suprapubic area under direct laparoscopic visualization. A third port was then placed 2 cm above the left anterior iliac spine, again, under direct laparoscopic visualization. Hemostasis followed. A probe was then placed and laparoscopic photographic documentation took plac e. At this point in time, the left fallopian tube was grasped and elevated and dissected free from t he mesosalpinx using the LigaSure. It was transected at the cornu. An 8 mm port was then placed int o the suprapubic area and the ectopic removed in pieces through that port. The 5 mm port was then re placed because some of the tissue did get stuck in the 8 mm port. The pelvis and abdomen was now thoroughly irrigated and no bleeding was noted. Hemostasis followed. This cleared the abdomen quite well of all blood. No further blood or tissue was noted in the abdom en. The instruments were removed and the CO2 allowed to escape from the abdomen. The ports were now removed and the skin reapproximated with 4-0 Monocryl suture in a subcuticular fashion. Hemostasis followed. Steri-Strips were placed and sterile dressings were placed. The HUMI was removed from the uterus. No signs of bleeding were noted. Hemostasis followed. The patient was now taken to [facility] room in stable condition. TD: 04/09/2019 23:26
[2019-04-10] MEDS ORDERED: SODIUM CHLORIDE FLUSH 0.9% 10 ML SYRINGE ONE (02:34)
[2019-04-10 06:11] VITALS: BP 90/54
== END 2019-04-10 06:38 | disposition home or self-care (01) ==
LOC: ED 15:56 → SDS 19:35 → MS2 04-10 00:07 → SDS 04-10 06:38
PROVIDERS: ATTEND Obstetrics & Gynecology
PROC: 0UT64ZZ Resection of Left Fallopian Tube, Percutaneous Endoscopic Approach (ICD-10-PCS; 2019-04-09)
PROC: 10T24ZZ Resection of Products of Conception, Ectopic, Percutaneous Endoscopic Approach (ICD-10-PCS; principal; 2019-04-09 21:00)
DX: O00.102 Left tubal pregnancy without intrauterine pregnancy (principal); Z87.891 Personal history of nicotine dependence
CPT/HCPCS: 36415; 59151; 76801; 76817; 84702; 85025; 96360; 96361; 99283; 99285; A9270; J7120